=== PATIENT | female | born 1990 ===

== ENCOUNTER → 2018-11-26 | Outpatient (CLI) | payer SELFPAY ==
[2018-11-29 04:48] LABS: CHLAMYDIA TRACHOMATIS, NAA Negative (Negative); NEISSERIA GONORRHOEAE, NAA Negative (Negative)
== END ==
LOC: LAB SHORT 19:12 → LAB 19:12
PROVIDERS: Family Medicine
DX: Z11.3 Encounter for screening for infections with a predominantly sexual mode of transmission (principal)
CPT/HCPCS: 87491; 87591